=== PATIENT | female | born 1995 | race Caucasian/White ===

== ENCOUNTER 2016-09-18 02:58 | Emergency (ER) | payer OTHER ==
[2016-09-18 03:06] VITALS: O2SAT 96
--- NOTE | 2016-09-18 03:20 | EDPHY ---
H & P Stated Complaint: EtOH- Time Seen by Provider: 09/18/16 03:05 HPI/ROS: Chief Complaint: Alcohol intoxication, vomiting HPI: 46-hjzy-egy-year-old female who was found on the street intoxicated. Patient passed out after vomiting. Is unable to ambulate on their own. Patient brought in by EMS for further evaluation. No obvious signs of trauma per EMS. Remainder of history is unobtainable secondary to the patient's intoxication. ROS: Unobtainable secondary to the patient's intoxication PMH: Unknown Medications: Unknown Allergies: Unknown Social History: Positive for alcohol Family History: non-contributory Physical Exam: Gen: Somnolent, responds to painful stimuli, maintaining airway, smells of alcohol and emesis HEENT: Atraumatic Nose: no epistaxis or deformity Eyes: PERRLA, EOMI Mouth: Moist mucosa Neck: Supple, no step-offs or deformity Chest: Atraumatic, lungs clear to auscultation Heart: S1, S2 normal, no murmur Abd: Soft, non-tender, no guarding Back: Atraumatic Ext: no edema, atraumatic Skin: no rash Neuro: Sensation grossly intact, Strength 5/5 in bilateral upper and lower extremities - Personal History LMP (Females 10-55): Unknown Current Tetanus Diphtheria and Acellular Pertussis (TDAP): Unsure - Medical/Surgical History Hx Asthma: No Hx Chronic Respiratory Disease: No Hx Diabetes: No Hx Cardiac Disease: No Hx Renal Disease: No Hx Cirrhosis: No Hx Alcoholism: No Hx HIV/AIDS: No Hx Splenectomy or Spleen Trauma: No Other PMH: none per her father - Social History Smoking Status: Never smoked Constitutional: Initial Vital Signs Temperature (C) 36.6 C 09/18/16 03:03 Heart Rate 83 09/18/16 03:03 Respiratory Rate 16 09/18/16 03:03 Blood Pressure 101/86 H 09/18/16 03:03 O2 Sat (%) 96 09/18/16 03:03 O2 Delivery Mode Room Air Allergies/Adverse Reactions: shellfish derived Allergy (Verified 09/18/16 03:03) Home Medications: Medication Instructions Recorded NK [No Known Home Meds] 11/03/14 Medical Decision Making ED Course/Re-evaluation: Patient is now awake and appropriate. Ambulating unassisted to the bathroom. No current complaints. Medically cleared for discharge. Departure - Departure Disposition: Home, Routine, Self-Care Clinical Impression: Alcoholic intoxication Condition: Good Instructions: Alcohol Intoxication (ED) Additional Instructions: Please avoid binge drinking alcohol. Referrals: Patient,NotPresent [Primary Care Provider] - As per Instructions
[2016-09-18 06:07] VITALS: BP 108/77; PULSE 100; RESP 18; TEMP 97.5
== END 2016-09-18 06:06 | disposition home or self-care (01) ==
LOC: EDUNIT#
DX: F10.129 Alcohol abuse with intoxication, unspecified (principal)